=== PATIENT | male | born 1995 | race Caucasian/White ===

== ENCOUNTER 2021-04-26 15:51 | Emergency (ER) | payer OTHER ==
[2021-04-26 15:58] VITALS: BP 122/71; PULSE 87; TEMP 97; BMI 24.7
[2021-04-26] MEDS ORDERED: KETOROLAC TROMETHAMINE 60 MG/2 ML VIAL IM ONE (17:26)
[2021-04-26] MEDS ORDERED: ACETAMINOPHEN 325 MG TABLET (FP) PO ONE (17:26)
[2021-04-26] MEDS ORDERED: METHOCARBAMOL 500 MG TABLET PO ONE (17:27)
[2021-04-26] MEDS ORDERED: LIDOCAINE 5% TOPICAL PATCH TP ONE (17:27)
[2021-04-26] MEDS ORDERED: KETOROLAC TROMETHAMINE 30 MG/1 ML VIAL ONE (18:19)
[2021-04-26] MEDS ORDERED: ACETAMINOPHEN 325 MG TABLET (FP) ONE (18:20)
[2021-04-26] MEDS ORDERED: METHOCARBAMOL 500 MG TABLET ONE (18:21)
[2021-04-26] MEDS ORDERED: LIDOCAINE 5% TOPICAL PATCH ONE (18:21)
== END 2021-04-26 19:31 | disposition home or self-care (01) ==
LOC: JERFT 15:51
PROC: 3E0233Z Introduction of Anti-inflammatory into Muscle, Percutaneous Approach (ICD-10-PCS; principal; 2021-04-26)
DX: M54.50 Low back pain, unspecified (principal); M54.2 Cervicalgia; V49.40XA Driver injured in collision with unspecified motor vehicles in traffic accident, initial encounter
CPT/HCPCS: 72040-TC; 72100-TC-FY; 99284-25